=== PATIENT | male | born 1970 | race Caucasian/White ===

== ENCOUNTER 2017-11-15 12:28 | Emergency (ER) | END 2017-11-15 13:56 | disposition home or self-care (01) ==

== ENCOUNTER 2018-10-13 09:50 | Emergency (ER) | payer BC, OTHER ==
[~2018-10-13] VITALS: Wt 88.8 kg
[~2018-10-13 09:50] MED LIST: IBUP800T48 PO; METO-448 PO; [UNRECOGNIZED DRUG - CODE]
[2018-10-13] MEDS ORDERED: KETOROLAC 30 MG INJ IV STA (10:10)
[2018-10-13] MEDS ORDERED: ONDANSETRON 4 MG INJ IV STA (10:10)
[2018-10-13] MEDS ORDERED: SOD CHLORIDE 0.9% 500 ML IV STA (10:10)
[2018-10-13] MEDS ORDERED: CARV25TA79 PO (10:55)
[2018-10-13] MEDS ORDERED: LISI1TAB6 PO (10:55)
[2018-10-13] MEDS ORDERED: AMLO-147 PO (10:55)
[2018-10-13] MEDS ORDERED: ATOR10TA65 PO (10:56)
[2018-10-13] MEDS ORDERED: MTF1000T PO (10:56)
[2018-10-13] MEDS ORDERED: morphine 4 MG/ML VIAL IV STA (11:38)
[2018-10-13] MEDS ORDERED: IBUP-1542 PO (12:19)
[2018-10-13] MEDS ORDERED: TAMS-14 PO (12:19)
[2018-10-13] MEDS ORDERED: HYDR-3980 PO (12:19)
[2018-10-13] MEDS ORDERED: NALO4SPR NS (12:19)
[2018-10-13 12:47] VITALS: BP 96/84; PULSE 63; RESP 16
--- NOTE | 2018-10-13 14:27 | ERD ---
ER Documentation Chief Complaint Chief Complaint AP RAD RIGHT TESTICLE , NAUSEA X 3 DAYS HPI Patient is a 48-year-old male with hypertension and diabetes who presents with abdominal pain. He has right lower quadrant abdominal pain which radiates to his right testicle. He has had the symptoms off and on for the past 3 days. He tried Motrin. He denies fevers. He has had nausea but no vomiting or diarrhea. He did have a decreased appetite today. Upon review of old medical records the patient has multiple visits for various complaints. His primary doctor is Dr. Tony. ROS All systems reviewed and are negative except as per history of present illness. Medications Home Meds Active Scripts Naloxone HCl nasal spray (Narcan 4 mg/0.1 mL nasal) 4 Mg [place], 4 MG NS .Q2-3MIN for OPIOID OVERDOSE, #2 SPRAY 0 Refills [place] 0.1 mL into one nostril. Repeat with second device into other nostril after 2-3 minutes if no or minimal response Prov:TASHA HERNANDEZ MD 10/13/18 Hydrocodone/Acetaminophen ([place] 10-325 Tablet) 1 Each Tablet, 1 TAB PO Q6H PRN for PAIN, #12 TAB Prov:TASHA HERNANDEZ MD 10/13/18 Ibuprofen* (Motrin*) 600 Mg Tab, 600 MG PO Q6H PRN for PAIN AND OR ELEVATED TEMP, #30 TAB Prov:TASHA HERNANDEZ MD 10/13/18 Tamsulosin Hcl* (Flomax*) 0.4 Mg Cap.er.24h, 0.4 MG PO QPM, #30 CAP Prov:TASHA HERNANDEZ MD 10/13/18 Reported Medications Atorvastatin Calcium (Atorvastatin Calcium) 10 Mg Tablet, 10 MG PO QHS, #30 TAB 10/13/18 Metformin* (Glucophage*) 1,000 Mg Tablet, 1000 MG PO BID, #60 TAB 10/13/18 Amlodipine Besylate* (Amlodipine Besylate*) 10 Mg Tablet, 10 MG PO DAILY, #30 TAB 10/13/18 Carvedilol* (Carvedilol*) 25 Mg Tablet, 25 MG PO BID, #60 TAB 10/13/18 Lisinopril/Hydrochlorothiazide (Lisinopril-Hctz 20-12.5 mg Tab) 1 Each Tablet, 1 EACH PO DAILY, TAB 10/13/18 Discontinued Reported Medications Metoprolol Tartrate* (Lopressor*) 25 Mg Tab, 50 MG PO 06/26/11 Hctz/Lisinopril (Prinzide 20/12.5) 1 Tab Tab 06/26/11 Discontinued Scripts Ibuprofen* (Motrin*) 800 Mg Tab, 800 MG PO Q6H PRN for PAIN AND OR ELEVATED TEMP, #30 TAB Prov:CAYETANO CLARKE MD 11/15/17 Allergies Allergies: Coded Allergies: No Known Allergy (Verified , 10/13/18) PMhx/Soc History of Surgery: No Anesthesia Reaction: No Hx Neurological Disorder: No Hx Respiratory Disorders: No Hx Cardiac Disorders: Yes (HTN, DMii) Hx Psychiatric Problems: No Hx Miscellaneous Medical Probl: No Hx Alcohol Use: No Hx Substance Use: No Hx Tobacco Use: No Smoking Status: Former smoker FmHx Family History: diabetes Physical Exam Vitals Vital Signs Date Temp Pulse Resp B/P (MAP) Pulse Ox O2 O2 Flow FiO2 Time Delivery Rate 10/13/18 63 16 96/84 (88) 97 Room Air 12:47 10/13/18 98.1 91 18 135/91 99 09:53 (106) Physical Exam Const: No acute distress Head: Atraumatic Eyes: Normal Conjunctiva ENT: Normal External Ears, Nose and Mouth. Neck: Full range of motion. No meningismus. Resp: Clear to auscultation bilaterally Cardio: Regular rate and rhythm, no murmurs Abd: Soft, right lower quadrant tenderness to palpation without rebound or guarding Skin: No petechiae or rashes Back: No midline or flank tenderness Ext: No cyanosis, or edema Neur: Awake and alert Psych: Normal Mood and Affect Result Diagram: 10/13/18 1028 10/13/18 1028 Results 24 hrs Laboratory Tests Test 10/13/18 10:28 10/13/18 12:06 White Blood Count 8.5 10^3/ul Red Blood Count 5.20 10^6/ul Hemoglobin 14.5 g/dl Hematocrit 42.8 % Mean Corpuscular Volume 82.3 fl Mean Corpuscular Hemoglobin 27.9 pg Mean Corpuscular Hemoglobin Concent 33.9 g/dl Red Cell Distribution Width 12.3 % Platelet Count 294 10^3/UL Mean Platelet Volume 9.6 fl Immature Granulocytes % 0.200 % Neutrophils % 69.2 % Lymphocytes % 20.9 % Monocytes % 8.8 % Eosinophils % 0.5 % Basophils % 0.4 % Nucleated Red Blood Cells % 0.0 /100WBC Immature Granulocytes # 0.020 10^3/ul Neutrophils # 5.9 10^3/ul Lymphocytes # 1.8 10^3/ul Monocytes # 0.8 10^3/ul Eosinophils # 0.0 10^3/ul Basophils # 0.0 10^3/ul Nucleated Red Blood Cells # 0.0 10^3/ul Sodium Level 139 mmol/L Potassium Level 4.1 mmol/L Chloride Level 101 mmol/L Carbon Dioxide Level 25 mmol/L Anion Gap 13 Blood Urea Nitrogen 18 mg/dl Creatinine 1.09 mg/dl Est Glomerular Filtrat Rate mL/min > 60 mL/min Glucose Level 262 mg/dl Calcium Level 9.8 mg/dl Total Bilirubin 0.6 mg/dl Direct Bilirubin 0.00 mg/dl Indirect Bilirubin 0.6 mg/dl Aspartate Amino Transf (AST/SGOT) 27 IU/L Alanine Aminotransferase (ALT/SGPT) 44 IU/L Alkaline Phosphatase 89 IU/L Total Protein 7.1 g/dl Albumin 4.2 g/dl Globulin 2.90 g/dl Albumin/Globulin Ratio 1.44 Lipase 94 U/L Urine Color STRAW Urine Clarity SLIGHTLY CLOUDY Urine pH 7.0 Urine Specific [place] 1.010 Urine Ketones NEGATIVE mg/dL Urine Nitrite NEGATIVE mg/dL Urine Bilirubin NEGATIVE mg/dL Urine Urobilinogen NEGATIVE mg/dL Urine Leukocyte Esterase NEGATIVE Ortiz/ul Urine Microscopic RBC 4 /HPF Urine Microscopic WBC 0 /HPF Urine Hemoglobin 1+ mg/dL Urine Glucose 3+ mg/dL Urine Total Protein NEGATIVE mg/dl Current Medications Medications Dose Sig/Elsy Start Time Status Last (Trade) Ordered Route PRN Stop Time Admin Dose Reason Admin Sodium 500 ml @ Q1H STAT 10/13/18 DC 10/13/18 Chloride 500 mls/hr IV 10:10 10:31 10/13/18 11:09 Ondansetron 4 mg ONCE STAT 10/13/18 DC 10/13/18 HCl (Zofran IV 10:10 10:31 Inj) 10/13/18 10:11 Ketorolac 30 mg ONCE STAT 10/13/18 DC 10/13/18 Tromethamine IV 10:10 10:31 (Toradol) 10/13/18 10:11 Morphine 4 mg ONCE STAT 10/13/18 DC 10/13/18 Sulfate IV 11:38 11:44 (morphine) 10/13/18 11:39 Procedures/MDM CT shows a 3 mm right-sided kidney stone per radiology. Patient is a 48-year-old male with hypertension and diabetes who presents with a 3 mm kidney stone. I doubt infected kidney stone at this time the patient is otherwise well-appearing. I believe outpatient management is appropriate at this time. The patient will need to follow-up with Dr. Samuels for reevaluation in case lithotripsy is needed. However given the fact that the stone is less than 4 mm I believe this will likely pass on its own. I doubt appendicitis, cholecystitis, pancreatitis, or bowel obstruction. Departure Diagnosis: Primary Impression: Kidney stone Additional Impression: Abdominal pain Abdominal location: right lower quadrant Qualified Codes: R10.31 - Right lower quadrant pain Condition: Fair Patient Instructions: Kidney Stone W/ Colic Referrals: MARLON SAMUELS MD Additional Instructions: SPECIALIST: YOU HAVE A MEDICAL CONDITION WHICH REQUIRES YOU TO SEE A SPECIALIST WITHIN THE NEXT 1-2 DAYS. PLEASE FOLLOW UP WITH YOUR PRIMARY PHYSICIAN FOR REFFERAL.IF YOU DO NOT HAVE A PRIMARY CARE PHYSICIAN AND/OR YOU CAN NOT AFFORD TO SEE A PHYSICIAN THE FOLLOWING RESOURCES HAVE BEEN SUPPLIED TO YOU. IT IS YOUR RESPONSIBILITY TO BE SEEN BY THE SPECIALIST TASHA HERNANDEZ MD Oct 13, 2018 14:27
== END 2018-10-13 12:51 | disposition home or self-care (01) ==
LOC: E/R 09:50
DX: N20.0 Calculus of kidney (principal); I10 Essential (primary) hypertension; E11.9 Type 2 diabetes mellitus without complications; Z79.84 Long term (current) use of oral hypoglycemic drugs; Z87.891 Personal history of nicotine dependence
CPT/HCPCS: 36415; 74176; 80053; 81001; 83690; 85025; 96361; 96374; 96375; 99285; J1885; J2270; J2405; J7040

== ENCOUNTER → 2018-11-03 | Outpatient (CLI) | payer BC ==
[~2018-11-03] MED LIST changes: +AMLO-147 PO; +ATOR10TA65 PO; +CARV25TA79 PO; +HYDR-3980 PO; +IBUP-1542 PO; -IBUP800T48 PO; +LISI1TAB6 PO; -METO-448 PO; +MTF1000T PO; +NALO4SPR NS; +TAMS-14 PO; -[UNRECOGNIZED DRUG - CODE]
== END | disposition home or self-care (01) ==
LOC: LAB 10:47
PROVIDERS: ATTEND Internal Medicine
DX: E11.8 Type 2 diabetes mellitus with unspecified complications (principal); I10 Essential (primary) hypertension; E78.5 Hyperlipidemia, unspecified
CPT/HCPCS: 80053; 80061; 83036

== ENCOUNTER → 2019-01-29 | Outpatient (CLI) | payer BC | END | disposition home or self-care (01) | LOC: LAB 06:30 | PROVIDERS: ATTEND Internal Medicine | DX: E11.65 Type 2 diabetes mellitus with hyperglycemia (principal); I10 Essential (primary) hypertension; E78.5 Hyperlipidemia, unspecified | CPT/HCPCS: 80053; 80061; 82043; 83036 ==